=== PATIENT | male | born 1985 | race Hispanic/Latino ===

== ENCOUNTER 2024-06-08 09:32 | Emergency (ER) | payer SELFPAY ==
[2024-06-08] MEDS ORDERED: HYDROcodone/Acetaminophen 5/325 mg Tablet ONE (10:02)
[2024-06-08] MEDS ORDERED: Dexamethasone 10 MG/ML VIAL ONE (10:02)
[2024-06-08] MEDS ORDERED: Ketorolac Tromethamine 30 MG (1 mL) VIAL ONE ×2 (10:03→10:18)
== END 2024-06-08 10:30 | disposition home or self-care (01) ==
LOC: CSHERS 09:32
DX: S39.012A Strain of muscle, fascia and tendon of lower back, initial encounter (principal); X50.0XXA Overexertion from strenuous movement or load, initial encounter
CPT/HCPCS: 96372; 99283; J1100; J1885